=== PATIENT | female | born 1990 | race American Indian/Alaskan Native ===

== ENCOUNTER 2019-05-18 16:57 | Emergency (ER) | payer MEDICAID ==
[2019-05-18] MEDS ORDERED: IBUPROFEN 600 MG TAB PO ONE (18:02)
--- NOTE | 2019-05-18 19:58 | Emergency Department Report ---
- General Chief Complaint: Upper Respiratory Infection Stated Complaint: HEADACHE Time Seen by Provider: 05/18/19 19:47 Source: patient Mode of arrival: Ambulatory Limitations: No Limitations - History of Present Illness Initial Comments: Patient is a 28-year-old female presents emergency room with complaints of URI symptoms that began last night. She has associated headache, rhinorrhea, congestion, dry cough, fever, generalized body aches, nausea. She denies any vomiting, diarrhea, abdominal pain. She states that she last took Motrin at 12 PM today. She denies any known sick contacts. She states she has a past medical history of seizures and hypertension. She denies any allergies medications. - Related Data Previous Rx's Medication Instructions Recorded Last Taken Type Oseltamivir [Tamiflu] 75 mg PO BID 5 Days #10 cap 05/18/19 Unknown Rx Allergies Allergy/AdvReac Type Severity Reaction Status Date / Time No Known Allergies Allergy Verified 05/18/19 17:00 ED Review of Systems ROS: Stated complaint: HEADACHE Other details as noted in HPI Comment: All other systems reviewed and negative ED Past Medical Hx - Past Medical History Previous Medical History?: Yes Hx Hypertension: Yes Hx Seizures: Yes - Social History Smoking Status: Never Smoker Substance Use Type: None - Medications Home Medications: Home Medications Medication Instructions Recorded Confirmed Last Taken Type Oseltamivir [Tamiflu] 75 mg PO BID 5 Days #10 cap 05/18/19 Unknown Rx ED Physical Exam - General Limitations: No Limitations General appearance: alert, in no apparent distress - Head Head exam: Present: atraumatic, normocephalic - Eye Eye exam: Present: normal appearance - ENT ENT exam: Present: mucous membranes moist - Respiratory Respiratory exam: Present: normal lung sounds bilaterally. Absent: respiratory distress, wheezes, rales, rhonchi, stridor, chest wall tenderness, accessory muscle use, decreased breath sounds, prolonged expiratory - Cardiovascular Cardiovascular Exam: Present: regular rate, normal rhythm, normal heart sounds. Absent: systolic murmur, diastolic murmur, rubs, gallop - GI/Abdominal GI/Abdominal exam: Present: soft, normal bowel sounds. Absent: distended, tenderness, guarding, rebound, rigid - Neurological Exam Neurological exam: Present: alert, oriented X3 - Psychiatric Psychiatric exam: Present: normal affect, normal mood - Skin Skin exam: Present: warm, dry, intact ED Course Vital Signs 05/18/19 05/18/19 17:56 20:42 Temperature 100.6 F H 98.5 F Pulse Rate 105 H 103 H Respiratory 18 18 Rate Blood Pressure 123/78 114/67 O2 Sat by Pulse 99 98 Oximetry ED Medical Decision Making - Medical Decision Making Patient is a 28-year-old female presents emergency room with complaints of URI symptoms that began last night. She has associated headache, rhinorrhea, congestion, dry cough, fever, generalized body aches, nausea. She denies any vomiting, diarrhea, abdominal pain. She states that she last took Motrin at 12 PM today. She denies any known sick contacts. She states she has a past medical history of seizures and hypertension. She denies any allergies medications. Vitals with elevated temperature and heart rate which improved upon ibuprofen and Tylenol administration. Patient's breath sounds are clear bilaterally without wheezing, rales, rhonchi. Patient has clinical symptoms of influenza. Will treat patient with Tamiflu. Discussed supportive care with patient. advised pt Please take medication as prescribed. Increase your fluid intake over the next several days. May alternate Tylenol and ibuprofen every 4 hours as needed for a temperature of 100.4 or greater. Get plenty of rest. Follow-up with a primary care doctor in the next 2-3 days. Return to the emergency room for any new or worsening symptoms. - Differential Diagnosis URI, influenza, PNA, viral syndrome, pharyngitis, otitis, sinusitis Critical care attestation.: If time is entered above; I have spent that time in minutes in the direct care of this critically ill patient, excluding procedure time. ED Disposition Clinical Impression: Influenza Disposition: DC-01 TO HOME OR SELFCARE Is pt being admited?: No Does the pt Need Aspirin: No Condition: Stable Instructions: Influenza (ED) Additional Instructions: Please take medication as prescribed. Increase your fluid intake over the next several days. May alternate Tylenol and ibuprofen every 4 hours as needed for a temperature of 100.4 or greater. Get plenty of rest. Follow-up with a primary care doctor in the next 2-3 days. Return to the emergency room for any new or worsening symptoms. Prescriptions: Oseltamivir [Tamiflu] 75 mg PO BID 5 Days #10 cap Referrals: EMILY HOU MD [Staff Physician] - 2-3 Days Forms: Work/School Release Form(ED) Time of Disposition: 19:57 Print Language: ESTONIAN
[2019-05-18] MEDS ORDERED: ACETAMINOPHEN 325 MG TAB PO ONE (20:04)
[2019-05-18 20:52] VITALS: BP 114/67
== END 2019-05-18 21:00 | disposition home or self-care (01) ==
LOC: ED 16:57
DX: J11.1 Influenza due to unidentified influenza virus with other respiratory manifestations (principal); I10 Essential (primary) hypertension; G40.909 Epilepsy, unspecified, not intractable, without status epilepticus; Z79.899 Other long term (current) drug therapy

== ENCOUNTER 2019-05-23 13:36 | Emergency (ER) | payer MEDICAID | END 2019-05-23 13:40 | disposition left against medical advice (07) | LOC: ED 13:36 | DX: R07.9 Chest pain, unspecified (principal); Z53.21 Procedure and treatment not carried out due to patient leaving prior to being seen by health care provider ==

== ENCOUNTER 2020-05-03 21:08 | Emergency (ER) | payer MEDICAID | END 2020-05-03 23:23 | disposition left against medical advice (07) | LOC: ED 21:08 | DX: M54.6 Pain in thoracic spine (principal); R51.9 Headache, unspecified; R10.9 Unspecified abdominal pain; Z53.21 Procedure and treatment not carried out due to patient leaving prior to being seen by health care provider ==

== ENCOUNTER 2020-06-23 06:52 | Emergency (ER) | payer MEDICAID ==
[2020-06-23 07:24] VITALS: BP 126/80
--- NOTE | 2020-06-23 07:29 | Event Note ---
ED Screening Note ED Screening Note: suprapubic and r flank pain lmp 05/17 not co for sti neg home preg x 2 had uti in dec and was treated. Never followed up for recheck vss This initial assessment/diagnostic orders/clinical plan/treatment(s) is/are subject to change based on patients health status, clinical progression and re-assessment by fellow clinical providers in the ED. Further treatment and workup at subsequent clinical providers discretion. Patient/guardian urged not to elope from the ED as their condition may be serious if not clinically assessed and managed. Initial orders include: ua upreg
[2020-06-23 08:23] LABS: HCG Qualitative,Urine Negative (Negative)
[2020-06-23 08:26] LABS: Bacteria,Urine 1+ /HPF (Negative); Bilirubin,Urine NEG (Negative); Blood,Urine NEG (Negative); Color,Urine Yellow (Yellow); Mucus,Urine 3+ /HPF; Urobilinogen,Urine < 2.0 mg/dL (<2.0)
--- NOTE | 2020-06-23 08:44 | Emergency Department Report ---
ED Female HPI - General Chief complaint: Abdominal Pain Stated complaint: ABD/BACK PAIN Time Seen by Provider: 06/23/20 07:17 Source: patient Mode of arrival: Ambulatory Limitations: No Limitations - History of Present Illness Initial comments: 29 yo female comes to er with co suprapubic abd pain. She is convinced she is despite 2 home preg tests being neg. She states she need ultrasound to make sure she is not preg. She has obgyn appnt in 2 weeks. no fever no back pain vss argumentative regarding med need for US ab 1 lmp 12-17 pt had pap a few months ago and was told then she had uti. she tooks meds but was never rechecked. symptoms never completely resolved. no vag dc not co for sti - Related Data Previous Rx's Medication Instructions Recorded Last Taken Type Oseltamivir [Tamiflu] 75 mg PO BID 5 Days #10 cap 05/18/19 Unknown Rx Sulfamethoxazole/Trimethoprim 1 each PO BID #10 tablet 06/23/20 Unknown Rx [Bactrim DS TAB] Allergies Allergy/AdvReac Type Severity Reaction Status Date / Time No Known Allergies Allergy Verified 06/23/20 07:18 ED Review of Systems ROS: Stated complaint: ABD/BACK PAIN Other details as noted in HPI Comment: All other systems reviewed and negative ED Past Medical Hx - Past Medical History Hx Hypertension: Yes Hx Seizures: Yes Hx Asthma: Yes - Surgical History Past Surgical History?: No - Family History Family history: no significant - Social History Smoking Status: Never Smoker Substance Use Type: Marijuana - Medications Home Medications: Home Medications Medication Instructions Recorded Confirmed Last Taken Type Oseltamivir [Tamiflu] 75 mg PO BID 5 Days #10 cap 05/18/19 Unknown Rx Sulfamethoxazole/Trimethoprim 1 each PO BID #10 tablet 06/23/20 Unknown Rx [Bactrim DS TAB] ED Physical Exam - General Limitations: No Limitations General appearance: alert, in no apparent distress - Head Head exam: Present: atraumatic, normocephalic - Eye Eye exam: Present: normal appearance - ENT ENT exam: Present: mucous membranes moist - Neck Neck exam: Present: normal inspection - Respiratory Respiratory exam: Present: normal lung sounds bilaterally. Absent: respiratory distress - Cardiovascular Cardiovascular Exam: Present: regular rate, normal rhythm. Absent: systolic murmur, diastolic murmur, rubs, gallop - GI/Abdominal GI/Abdominal exam: Present: soft, normal bowel sounds - Extremities Exam Extremities exam: Present: normal inspection - Back Exam Back exam: Present: normal inspection - Neurological Exam Neurological exam: Present: alert, oriented X3 - Psychiatric Psychiatric exam: Present: normal affect, normal mood - Skin Skin exam: Present: warm, dry, intact, normal color. Absent: rash ED Course Vital Signs 06/23/20 07:22 Temperature 98.3 F Pulse Rate 85 Respiratory 18 Rate Blood Pressure 126/80 O2 Sat by Pulse 100 Oximetry ED Medical Decision Making - Medical Decision Making Labs 06/23/20 Unknown Urine Color Yellow Urine Turbidity Hazy Urine pH 7.0 Ur Specific [place] 1.024 Urine Protein 30 mg/dl Urine Glucose (UA) Neg Urine Ketones Neg Urine Blood Neg Urine Nitrite Neg Ur Reducing Substances Not Reportable Urine Bilirubin Neg Urine Ictotest Not Reportable Urine Urobilinogen < 2.0 Ur Leukocyte Esterase Sm Urine WBC (Auto) 11.0 H Urine RBC (Auto) 6.0 U Epithel Cells (Auto) 16.0 H Urine Bacteria (Auto) 1+ Urine Mucus 3+ Urine HCG, Qual Negative Vital Signs 06/23/20 07:22 Temperature 98.3 F Pulse Rate 85 Respiratory 18 Rate Blood Pressure 126/80 O2 Sat by Pulse 100 Oximetry ua noted culture pending vss ambulatory and non ill appearing ab snt no cva tenderness taking po dc home with rx and detailed instructions for follow up. she verbalizes understanding. - Differential Diagnosis ro preg/uti Critical care attestation.: If time is entered above; I have spent that time in minutes in the direct care of this critically ill patient, excluding procedure time. ED Disposition Clinical Impression: UTI (urinary tract infection) Disposition: DC-01 TO HOME OR SELFCARE Is pt being admited?: No Does the pt Need Aspirin: No Condition: Stable Instructions: Urinary Tract Infection, Adult, Abdominal Pain (ED) Additional Instructions: hydrate well with water motrin or tylenol for pain med as ordered today until gone after med completed you need your urine rechecked with pcp referral below for our pcp your obgyn can also check your urine negative today Prescriptions: Sulfamethoxazole/Trimethoprim [Bactrim DS TAB] 1 each PO BID #10 tablet Referrals: ROSANA JOSHUA MD [Primary Care Provider] - 3-5 Days EMILY HOU MD [Staff Physician] - 3-5 Days Time of Disposition: 08:42
== END 2020-06-23 08:44 | disposition home or self-care (01) ==
LOC: ED 06:52
DX: N39.0 Urinary tract infection, site not specified (principal); I10 Essential (primary) hypertension; G40.909 Epilepsy, unspecified, not intractable, without status epilepticus; J45.909 Unspecified asthma, uncomplicated; F12.10 Cannabis abuse, uncomplicated; Z79.899 Other long term (current) drug therapy
CPT/HCPCS: 81001; 81025; 87086; 99283